=== PATIENT | male | born 1995 | race African-American/Black ===

== ENCOUNTER 2025-02-09 14:38 | Emergency (ER) | payer OTHER ==
[2025-02-09 15:02] VITALS: BP 109/70; PULSE 82; RESP 20; TEMP 98.1; BMI 32.3
[2025-02-09 16:03] LABS: ABSOLUTE IMMATURE GRANULOCYTES 0.03 x10^3/uL (0.0-0.031); BASOPHILS # 0.04 x10^3/uL (0.01-0.08); EOSINOPHIL % 2.7 % (0.8-7.0); HEMATOCRIT 47.9 % (40.1-51.0); HEMOGLOBIN 15.8 g/dL (13.7-17.5); MEAN CELL VOLUME 88.4 fl (79.0-92.2); MEAN PLT VOLUME 10.2 fl (9.4-12.4); MONOCYTE # 0.55 x10^3/uL (0.30-0.82); MONOCYTE % 7.5 % (5.3-12.2); PLATELET COUNT 256 x10^3/uL (163-337); RDW 12.4 % (11.9-15.3)
[2025-02-09] MEDS ORDERED: ACETAMINOPHEN INJECTION 100 ML ONE (16:14)
[2025-02-09] MEDS: ACETAMINOPHEN 1000 MG/100 ML BAG IVPB ONE (16:21)
[2025-02-09 16:45] LABS: ALBUMIN 4.2 g/dl (3.4-5.0); BLOOD UREA NITROGEN 14.6 mg/dL (7-18)
[2025-02-09 16:48] LABS: CREATININE 1.2 mg/dL (0.55-1.3)
[2025-02-09 16:49] LABS: BILIRUBIN,TOTAL 0.6 mg/dL (0.2-1); TOT PROT 8.3 g/dl (6.4-8.2)
[2025-02-09 17:29] LABS: HCV DIAGNOSTIC IN-HOUSE W/RFLX NON-REACTIVE (NONREACTIVE); HIV INTERPRETATION NEGATIVE (NEGATIVE)
[2025-02-09 18:43] LABS: URINE APPEARANCE CLEAR; URINE BILIRUBIN NEGATIVE (NEGATIVE); URINE COLOR YELLOW; URINE GLUCOSE (UA) NEGATIVE (NEGATIVE); URINE KETONE NEGATIVE (NEGATIVE); URINE LEUK ESTERASE NEGATIVE (NEGATIVE); URINE NITRITE NEGATIVE (NEGATIVE); URINE PROTEIN 1+ (NEGATIVE); URINE UROBILINOGEN 0.2 mg/dL (0.2-1.0)
[2025-02-09 20:22] LABS: EPI CELLS 2.1 /uL (0-25.1); HYALINE CASTS 0.25 /uL (0-3.1); URINE BACTERIA 4.7 /uL (0-1359); URINE RBC 3.6 /uL (0-23.9); URINE WBC 1.3 /uL (0-25.8)
== END 2025-02-09 19:30 | disposition home or self-care (01) ==
LOC: JER 14:38
PROC: 3E033NZ Introduction of Analgesics, Hypnotics, Sedatives into Peripheral Vein, Percutaneous Approach (ICD-10-PCS; principal; 2025-02-09)
DX: R10.31 Right lower quadrant pain (principal)
CPT/HCPCS: 36415; 74177-TC; 80053; 81003; 83690; 85025; 86803; 87389; 99285-25; J0131